=== PATIENT | female | born 1965 | race Caucasian/White ===

== ENCOUNTER → 2018-04-15 | Outpatient (CLI) | payer MEDICARE, MEDICAID ==
[~2018-04-15] MED LIST: CYCL5TAB PO; DULO20CA45 PO; EZET10TA18 PO; HYDR-879 PO; LINA145C PO; PREG300C PO; SIMV40TA3 PO; TRAM100T3 PO
[2018-04-15 14:58] LABS: BASOPHILS # (AUTO) 0.04 x10^3/uL (0-0.1); BASOPHILS % (AUTO) 1 % (0-1); EOSINOPHILS # (AUTO) 0.13 x10^3/uL (0-0.4); EOSINOPHILS % (AUTO) 2 % (1-7); LYMPHOCYTES # (AUTO) 3.58 x10^3/uL (1-3.4); LYMPHOCYTES % (AUTO) 43 % (22-44); MD NO; MEAN CORPUSCULAR HEMOGLOBIN 31.4 pg (27.0-34.8); MEAN CORPUSCULAR HGB CONC 33.8 g/dL (32.4-35.8); MEAN CORPUSCULAR VOLUME 92.9 fL (80-100); MEAN PLATELET VOLUME 6.7 fL (7.4-10.4); MONOCYTES # (AUTO) 0.61 x10^3/uL (0.2-0.8); MONOCYTES % (AUTO) 7 % (2-9); NEUTROPHILS # (AUTO) 3.93 x10^3/uL (1.8-6.8); NEUTROPHILS % (AUTO) 47 % (42-75); PLATELET COUNT 284 x10^3/uL (130-400); RED BLOOD COUNT 4.66 x10^6/uL (3.82-5.3); RED CELL DISTRIBUTION WIDTH 13.8 % (9.6-15.2)
[2018-04-15 15:00] LABS: MICROSCOPIC NOT IND
[2018-04-15 15:02] LABS: CULTURE INDICATED? NO
[2018-04-15 15:09] LABS: ALANINE AMINOTRANSFERASE 36 U/L (12-78); ANION GAP 7 mmol/L (5-15); CALCIUM 9.2 mg/dL (8.5-10.1); CHLORIDE 102 mmol/L (98-107); CREATININE 0.96 mg/dL (0.55-1.02)
[2018-04-15 15:11] LABS: ALKALINE PHOSPHATASE 80 U/L (45-117); BILIRUBIN,TOTAL 0.3 mg/dL (0.2-1.0); TOTAL PROTEIN 7.6 g/dL (6.4-8.2)
[2018-04-15 15:22] LABS: INTERNATIONAL NORMALIZED RATIO 0.96 (0.93-1.1); PROTHROMBIN TIME 9.9 Seconds (9.6-11.5)
== END | disposition home or self-care (01) ==
LOC: STAR 13:39
PROVIDERS: ATTEND Neurological Surgery
DX: Z01.818 Encounter for other preprocedural examination (principal); M50.31 Other cervical disc degeneration, high cervical region
CPT/HCPCS: 36415; 71046; 72050; 80053; 81003; 85025; 85610; 85730; 93005

== ENCOUNTER 2018-04-24 05:44 | Inpatient (IN) | payer MEDICARE, MEDICAID ==
[~2018-04-24] VITALS: Ht 162.6 cm; Wt 80.2 kg
[2018-04-24] MEDS ORDERED: EPINEPHRINE 1 MG/ML, 1ML ONE (05:56)
[2018-04-24] MEDS ORDERED: BUPIVACAINE/PF 0.5% ONE (05:56)
[2018-04-24] MEDS ORDERED: THROMBIN 5,000 UNIT VIAL TP ONE (05:56)
[2018-04-24] MEDS ORDERED: BACITRACIN 50,000 UNIT ONE (05:56)
[2018-04-24] MEDS ORDERED: LACTATED RINGERS 1,000 ML IV SCH (06:19)
[2018-04-24 06:21] VITALS: BP 117/82
[2018-04-24] MEDS ORDERED: FENTANYL PF 250 MCG/5ML ONE ×2 (06:44→08:02)
[2018-04-24] MEDS ORDERED: MIDAZOLAM 1 MG/ML, 2ML ONE (06:44)
[2018-04-24] MEDS ORDERED: GABAPENTIN 300 MG CAPSULE ONE (06:57)
[2018-04-24] MEDS ORDERED: ACETAMINOPHEN 500 MG TABLET ONE (06:57)
[2018-04-24] MEDS ORDERED: SCOPOLAMINE PATCH, 1.5MG PATCH.TD72 TD ONE ×2 (06:57→07:00)
[2018-04-24] MEDS ORDERED: GABAPENTIN 300 MG CAPSULE PO ONE (07:00)
[2018-04-24] MEDS ORDERED: ACETAMINOPHEN 500 MG TABLET PO ONE (07:00)
[2018-04-24] MEDS ORDERED: ROCURONIUM 10 MG/ML,10ML ONE (07:10)
[2018-04-24] MEDS ORDERED: ONDANSETRON 2MG/ML, 2ML ONE (07:10)
[2018-04-24] MEDS ORDERED: PROPOFOL 10 MG/ML, 20ML ONE (07:10)
[2018-04-24] MEDS ORDERED: DEXAMETHASONE 4 MG/ML, 1ML ONE (07:10)
[2018-04-24] MEDS ORDERED: SUCCINYLCHOLINE 20 MG/ML, 10ML ONE (07:10)
[2018-04-24] MEDS ORDERED: CEFAZOLIN 1,000 MG ONE (07:10)
[2018-04-24] MEDS ORDERED: HYDROmorphone 1 MG/ML, 1ML IV PRN (08:30)
[2018-04-24] MEDS ORDERED: METOCLOPRAMIDE 5 MG/ML, 2ML IV PRN (08:30)
[2018-04-24] MEDS ORDERED: KETOROLAC 30 MG/1 ML IV PRN (08:30)
[2018-04-24] MEDS ORDERED: OXYcodone 5 MG/5 ML ORAL.SOL UDC PO PRN (08:30)
[2018-04-24] MEDS ORDERED: ONDANSETRON 2MG/ML, 2ML IVPush PRN ×2 (08:30→09:30)
[2018-04-24] MEDS ORDERED: PROMETHAZINE 25 MG/ML, 1ML IV PRN (08:30)
[2018-04-24] MEDS ORDERED: LABETALOL 5MG/ML, 20ML IV PRN (08:30)
[2018-04-24] MEDS ORDERED: MEPERIDINE/PF 25MG/0.5ML IVPush PRN (08:30)
[2018-04-24] MEDS ORDERED: ALBUTEROL SULFATE 2.5 MG/3 ML NPPB PRN (08:30)
[2018-04-24] MEDS ORDERED: hydrALAzine 20 MG/ML, 1ML IV PRN (08:30)
[2018-04-24] MEDS ORDERED: MORPHINE SULFATE 4 MG/ML, 1ML IVPush PRN (09:30)
[2018-04-24] MEDS ORDERED: DIPHENHYDRAMINE 50 MG/ML, 1ML IVPush PRN (09:30)
[2018-04-24] MEDS ORDERED: HYDROcodone/APAP 5/325 TABLET PO PRN (09:30)
[2018-04-24] MEDS ORDERED: PHARMACY MAY ADJ FOR RENAL FX MC PRN (09:30)
[2018-04-24] MEDS ORDERED: PROMETHAZINE 25 MG/ML, 1ML IM PRN (09:30)
[2018-04-24] MEDS ORDERED: OXYcodone/APAP 5/325MG TABLET PO PRN (09:30)
[2018-04-24] MEDS ORDERED: BISACODYL 10 MG SUPP PR PRN (09:30)
[2018-04-24] MEDS ORDERED: METHOCARBAMOL 750 MG TABLET PO PRN (09:30)
[2018-04-24] MEDS ORDERED: SENNA/DOCUSATE TABLET PO PRN (09:30)
[2018-04-24] MEDS ORDERED: OXYcodone 5 MG/5 ML ORAL.SOL UDC ONE (09:47)
[2018-04-24] MEDS ORDERED: FENTANYL PF 100 MCG/2ML ONE (09:51)
[2018-04-24] MEDS: FENTANYL PF 100 MCG/2ML IV PRN ×2 (09:52→10:00)
[2018-04-24] MEDS: D5%-0.9% NACL+KCL 20MEQ 1,000 ML IV SCH (13:00)
[2018-04-24] MEDS: HYDROcodone/APAP 10/325 MG TABLET PO PRN ×2 (14:25→22:20)
[2018-04-24 14:52] VITALS: BP 125/73
[2018-04-24] MEDS ORDERED: CEFAZOLIN PMX 1GM/50ML 50 ML IVPB SCH (15:00)
[2018-04-24] MEDS ORDERED: CEFAZOLIN 1,000 MG in SODIUM CHLORIDE 0.9% 50 ML IVPB SCH (15:00)
[2018-04-24] MEDS: CEFAZOLIN PMX 1GM/50ML 50 ML IVPB SCH ×2 (15:21→22:57)
[2018-04-24] MEDS: CYCLOBENZAPRINE 10 MG TABLET PO PRN (15:49)
[2018-04-24 18:23] VITALS: BP 125/74
[2018-04-24] MEDS ORDERED: SIMVASTATIN 40 MG TABLET PO SCH (21:00)
[2018-04-24] MEDS: SODIUM CHLORIDE FLUSH 10ML SYR IVF SCH (22:20)
[2018-04-25] MEDS: D5%-0.9% NACL+KCL 20MEQ 1,000 ML IV SCH ×2 (00:07→09:02)
[2018-04-25 01:32] VITALS: BP 127/71
[2018-04-25] MEDS: CYCLOBENZAPRINE 10 MG TABLET PO PRN (05:31)
[2018-04-25] MEDS: HYDROcodone/APAP 10/325 MG TABLET PO PRN ×2 (05:31→10:16)
[2018-04-25 08:09] VITALS: BP 112/66
[2018-04-25] MEDS ORDERED: DULOXETINE 20 MG CAPSULE.DR PO SCH (09:00)
[2018-04-25] MEDS ORDERED: LINACLOTIDE HOMEMEDPO SCH (09:00)
[2018-04-25] MEDS ORDERED: PREGABALIN 150 MG CAPSULE PO SCH (09:00)
[2018-04-25] MEDS ORDERED: EZETIMIBE 10 MG TABLET PO SCH (09:00)
[2018-04-25] MEDS: SODIUM CHLORIDE FLUSH 10ML SYR IVF SCH (09:00)
[2018-04-25] MEDS ORDERED: METH4TAB2 PO (09:23)
[2018-04-25] MEDS ORDERED: CEPH-368 PO (09:23)
[2018-04-25] MEDS ORDERED: CYCL5TAB PO (09:23)
[2018-04-25] MEDS ORDERED: HYDR-3307 PO (09:23)
== END 2018-04-25 13:49 | disposition home or self-care (01) | DRG 472 ==
LOC: ORIP 05:44 → 4NOR 10:42 → DCLOUNGE 04-25 13:34
PROVIDERS: ADMIT Neurological Surgery; ATTEND Neurological Surgery
PROC: 0RB30ZZ Excision of Cervical Vertebral Disc, Open Approach (ICD-10-PCS; 2018-04-24)
PROC: 4A11X4G Monitoring of Peripheral Nervous Electrical Activity, Intraoperative, External Approach (ICD-10-PCS; 2018-04-24)
PROC: 0RG10A0 Fusion of Cervical Vertebral Joint with Interbody Fusion Device, Anterior Approach, Anterior Column, Open Approach (ICD-10-PCS; principal; 2018-04-24 07:00)
DX: M48.02 Spinal stenosis, cervical region (principal); M50.01 Cervical disc disorder with myelopathy, high cervical region; Z87.891 Personal history of nicotine dependence; Z88.2 Allergy status to sulfonamides; Z88.8 Allergy status to other drugs, medicaments and biological substances
CPT/HCPCS: 72040; C1713; G0378; J0171; J0690; J1100; J2250; J2405; J2704; J3010; J3490; C1762; J0330; J3480; J7120